=== PATIENT | female | born 1995 | race Caucasian/White ===

== ENCOUNTER 2017-04-05 19:45 | Emergency (ER) | payer BC ==
[~2017-04-05] VITALS: Ht 157.5 cm; Wt 60.0 kg
[2017-04-05 19:47] VITALS: BP 124/67; PULSE 99; RESP 16; TEMP 98.5; O2SAT 98
[2017-04-05] MEDS ORDERED: ERYTHROMYCIN 0.5% OPTH OINT 3.5 GM TUBO RIGHT EYE ONE (21:45)
[2017-04-05] MEDS ORDERED: ACETAMINOPHEN/HYDROcodone 325 MG/5 MG TAB PO ONE (21:45)
--- NOTE | 2017-04-05 21:47 | PD ---
HPI Chief Complaint: Eye Problems/Injury Time Seen by Provider: 21:27 Travel History International Travel<30 days: No Contact w/Intl Traveler<30days: No Traveled to known affect area: No History of Present Illness HPI 21-year-old white female presents to emergency department stating that she has a laceration on her right eye from having a bug foreign body in it today. She states that the bug flew in her eye while she was out walking. She flush the bug out but still had foreign body sensation and felt as if there is something in her right eye. She states that she felt as if had lacerated her cornea. She denies any diplopia or or blurred vision. Positive tearing. No purulent drainage. She does wear glasses but does not wear them routinely. No contacts. Up-to-date with immunizations. PFSH Past Medical History Medical History: Denies Significant Hx Tetanus Vaccination: < 5 Years ?: Not Past Surgical History Surgical History: No Previous Surgery Social History Alcohol Use: No Tobacco Use: No Substance Use: No Allergies-Medications (Allergen,Severity, Reaction): Coded Allergies: No Known Allergies (Verified Allergy, Unknown, 04/05/17) Review of Systems General / Constitutional: No: Fever Eyes: Positive: Redness, Foreign Body Sensation, Pain, Tearing, No: Diploplia, Blurred Vision, Photophobia, Drainage, Visual changes HENT: No: Headaches Cardiovascular: No: Chest Pain or Discomfort Respiratory: No: Shortness of Breath Gastrointestinal: No: Abdominal Pain Genitourinary: No: Dysuria Musculoskeletal: No: Pain Skin: No Rash Neurologic: No: Weakness Psychiatric: No: Depression Endocrine: No: Polydipsia Hematologic/Lymphatic: No: Easy Bruising Physical Exam Narrative GENERAL: Well-developed, well-nourished in no acute distress. Nontoxic appearing. HEAD: Normocephalic, atraumatic. EYES: Pupils equal round and reactive. Extraocular motions intact. No scleral icterus. No injection or drainage in the left eye. The right eye is somewhat injected. There is a foreign body noted at the 5:00 hour just outside the central vision over the iris on the cornea. It appears to be either a small piece of plant matter or a piece of exoskeleton of a bug. Lids are flipped and no other foreign body seen. Alcaine is instilled in the right eye. The foreign bodies removed using a Q-tip. Fluorescein reveals a corneal abrasion where the foreign body had been sitting. ENT: TMs clear without erythema. The external auditory canals clear. Nose: clear . Posterior pharynx is pink and moist. No tonsillar edema or exudate. Uvula midline. Airway patent. NECK: Trachea midline.Supple, nontender, moves head freely. No central bony tenderness or spasm. CARDIOVASCULAR: Regular rate and rhythm without murmurs, gallops, or rubs. RESPIRATORY: Clear to auscultation. Breath sounds equal bilaterally. No wheezes , rales, or rhonchi. GASTROINTESTINAL: Abdomen soft, non-tender, nondistended. No hepato-splenomegaly , or palpable masses. No guarding. EXTREMITIES: No clubbing, cyanosis, or edema. No joint tenderness, effusion, or edema noted. BACK: Nontender without deformity or crepitance. No flank tenderness. Data Data Last Documented VS Vital Signs Date Time Temp Pulse Resp B/P (MAP) Pulse Ox O2 Delivery O2 Flow Rate FiO2 04/05/17 19:47 98.5 99 16 124/67 (86) 98 Room Air Orders Orders Erythromycin 0.5% Opth Oint (Ilotycin 0. (04/05/17 21:45) Acetamin-Hydrocod 325-5 Mg ([place] 5-325 (04/05/17 21:45) Ed Discharge Order (04/05/17 21:40) [facility] Medical Decision Making Medical Screen Exam Complete: Yes Emergency Medical Condition: Yes Medical Record Reviewed: Yes Differential Diagnosis MDM: High Differential diagnoses: Acute conjunctivitis (bacterial, viral, allergic, traumatic), glaucoma, iritis, traumatic globe injury, foreign body, corneal abrasion, corneal ulcer, diabetic retinopathy, photokeratitis, herpes keratitis , CMV retinitis Narrative Course Patient had a foreign body removed from the right eye. She has a retained abrasion. She is given erythromycin ointment. Lortab 5 milligram by mouth for pain. This is right eye foreign body removed Diagnosis Primary Impression: right eye foreign body removed Patient Instructions: General Instructions Additional Instructions: Rest. Cool compresses. Erythromycin ophthalmic ointment. One ribbon to the right eye 4 times daily. Followup with an eye doctor in 1-2 days. Return to the ER if any problems. Med/Other Pt SpecificInfo: Prescription(s) given Disposition: 01 DISCHARGE HOME Condition: Stable Faizan Robbins Apr 05, 2017 21:47
== END 2017-04-05 22:10 | disposition home or self-care (01) ==
LOC: NEPD 19:45 → EDBD 19:45 → NEPD 22:10
DX: T15.01XA Foreign body in cornea, right eye, initial encounter (principal); Y93.01 Activity, walking, marching and hiking
CPT/HCPCS: 65220